=== PATIENT | female | born 1965 | race Caucasian/White ===

== ENCOUNTER 2020-09-15 10:45 | Outpatient (REF) | payer OTHER, SELFPAY ==
--- NOTE | 2020-09-15 11:33 | XR_ITS ---
EXAMINATION: XR CHEST CLINICAL INFORMATION: Atelectasis. COMPARISON: Chest radiograph dated 06/20/2018. TECHNIQUE: 2 views of the chest were obtained. FINDINGS: The lungs are clear. The cardiomediastinal silhouette is normal in size. There is no pleural effusion or pneumothorax. No acute osseous abnormality. XR/XR chest 2V IMPRESSION: No acute cardiopulmonary findings.
[2020-09-15 12:18] LABS: Hematocrit 43.6 % (37-47); Hemoglobin 13.8 g/dl (12.0-16.0); Mean Corpuscular HGB Conc 31.7 g/dl (31.0-35.0); Mean Corpuscular Hemoglobin 28.8 pg (27.0-33.0); Mean Platelet Volume 12.2 fL (9.4-12.3); Platelet Count 218 X10*3/uL (160-400); Red Blood Count 4.79 X10*6/uL (4.20-5.50); Red Cell Distribution Width 12.5 % (11.0-16.0)
[2020-09-15 12:22] LABS: Alanine Aminotransferase 11 U/L (0-31); Albumin Level 4.8 g/dL (3.5-5.0); Alkaline Phosphatase 63 U/L (39-117); Anion Gap 12 (12-20); Aspartate Amino Transferase 14 U/L (5-31); Bilirubin Total 0.3 mg/dL (0.0-1.0); Blood Urea Nitrogen 21 mg/dL (9-16); Calcium 9.8 mg/dL (8.4-10.2); Carbon Dioxide 31 mmol/L (22-29); Chloride 103 mmol/L (96-108); Cholesterol 178 mg/dL; Estimated Glomerular Filt Rate > 60; Glucose Fasting 116 mg/dL (60-99); HDL Cholesterol 41 mg/dL; LDL Cholesterol Calculated 92 mg/dl; Potassium 4.1 mmol/l (3.3-5.1); Sodium 142 mmol/L (135-145); Triglycerides 228 mg/dL
[2020-09-18 13:42] LABS: Immunoglobulin A 169 mg/dL (47-310)
[2020-09-20 23:47] LABS: Transglutaminase Ab IgG 4 U/mL; Transglutaminase IgA 1 U/mL
[2020-09-24 20:52] LABS: Endomysial IgA Antibody Negative (Negative)
== END 2020-09-15 10:46 | disposition home or self-care (01) ==
LOC: HO.LAB 10:45
PROVIDERS: Absent Provider Internal Medicine; PCP Internal Medicine; Visit Provider Internal Medicine
DX: Z20.822 Contact with and (suspected) exposure to COVID-19 (principal); J98.11 Atelectasis; I10 Essential (primary) hypertension; J30.9 Allergic rhinitis, unspecified; E78.5 Hyperlipidemia, unspecified
CPT/HCPCS: 36415; 71046; 80053; 80061; 82784; 83516; 85027; 86003; 86255; 86256; C9803; U0003

== ENCOUNTER 2020-12-04 10:04 | Outpatient (REF) | payer OTHER, SELFPAY ==
[2020-12-04 14:29] LABS: SARS COV2 PCR INHOUSE NEGATIVE (Negative)
== END 2020-12-04 10:05 | disposition home or self-care (01) ==
LOC: HO.LAB 10:04
PROVIDERS: Visit Provider Internal Medicine
DX: Z20.822 Contact with and (suspected) exposure to COVID-19 (principal)
CPT/HCPCS: C9803; U0003